=== PATIENT | female | born 1975 | race Caucasian/White ===

== ENCOUNTER 2016-05-06 15:03 | Emergency (ER) | payer SELFPAY ==
[~2016-05-06 15:03] MED LIST: Iopamidol 370 76% 100 ML VIAL ONE; Sodium Chloride 0.9% 1,000 ML BAG ONE
[2016-05-06] MEDS ORDERED: Ondansetron HCl/PF 4 MG/2 ML Vial ONE (15:30)
[2016-05-06 15:46] LABS: Bilirubin Negative (Negative); Blood, Urine Trace (Negative); Clarity Clear (Clear); Glucose, Urine (Dipstick) Negative (Negative); Leukocyte Negative (Negative); Nitrite Negative (Negative); Protein, Urine (Dipstick) Negative (Neg-Trace); RBC/HPF 0-3 HPF (0-3); Specific Gravity, Urine 1.015 (1.005-1.030); Urobilinogen 0.2 mg/dL (0.2-1.0)
[2016-05-06 15:47] LABS: WBC/HPF 0-3 HPF (0-3)
[2016-05-06 16:04] LABS: #Basophils 0.2 thou/uL (0.0-0.2); #Eosinphils 0.2 thou/uL (0.0-0.7); #Lymphocytes 3.4 thou/uL (1.20-3.40); #Monocytes 0.5 thou/uL (0.11-0.59); #Neutrophils 7.2 thou/uL (1.40-6.50); %Basophils 1.4 % (0.0-1.0); %Eosinophils 1.8 % (0.0-10.0); %Lymphocytes 29.7 % (21.0-51.0); %Monocytes 4.5 % (0.0-10.0); %Neutrophils 62.7 % (42.0-75.0); Hemoglobin 15.3 g/dL (12.0-16.0); Mean Corpuscular HGB CONC 34.3 g/dL (32.0-36.0); Mean Corpuscular Hemoglobin 31.9 pg (27.0-31.0); Mean Platelet Volume 6.8 fL (7.4-10.4); Platelet Count 433 thou/uL (130-400); RBC Distribution Width 12.3 % (11.5-14.5); White Blood Cell (WBC) Count 11.4 thou/uL (4.8-10.8)
[2016-05-06] MEDS ORDERED: Ketorolac Tromethamine 30 MG/ML VIAL ONE (16:05)
[2016-05-06 16:18] LABS: Amphetamine Not Detected (NotDetected); Benzodiazepine Screen Detected (NotDetected); Cocaine Metabolite Screen Not Detected (NotDetected); Methamphetamine Not Detected (NotDetected); Opiate Screen Detected (NotDetected); Phencyclidine (PCP) Not Detected (NotDetected); THC/Cannabinoid Screen Not Detected (NotDetected); Tricyclic Screen Not Detected (NotDetected)
[2016-05-06 16:19] LABS: Barbiturates Screen Not Detected (NotDetected); Medtox Control Line Valid? VALID (VALID); Methadone Not Detected (NotDetected); Oxycodone Screen Not Detected (NotDetected)
[2016-05-06 16:22] LABS: ALT (SGPT) 14 U/L (0-55); AST (SGOT) 14 U/L (5-34); Albumin 4.5 g/dL (3.5-5.0); Alkaline Phosphatase 104 U/L (40-150); Anion Gap 16 mmol/L (10-20); BUN (Urea Nitrogen) 4 mg/dL (7.0-18.7); Bilirubin, Total 0.3 mg/dL (0.2-1.2); Calc. Creatinine Clearance 0 mL/min (70-130); Calcium 9.6 mg/dL (7.8-10.44); Carbon Dioxide 24 mmol/L (22-29); Chloride 104 mmol/L (98-107); Estimated GFR-MDRD 86; Globulin 2.5 g/dL (2.4-3.5); Glucose 86 mg/dL (70-105); Potassium 3.6 mmol/L (3.5-5.1); Sodium 140 mmol/L (136-145)
[2016-05-06] MEDS ORDERED: methylPREDNISolone Sod Succ/PF 125 MG/2 ML VIAL ONE (16:24)
[2016-05-06] MEDS ORDERED: diphenhydrAMINE HCl 50 MG/ML 1 ML VIAL ONE (16:24)
--- NOTE | 2016-05-06 19:16 | ERRECORD ---
[facility] EMERGENCY RECORD HPI NAUSEA/VOMITING/DIARRHEA (15:55 LHOD) CHIEF COMPLAINT: Patient presents for evaluation of nausea, Patient presents for evaluation of vomiting, Patient presents for evaluation of diarrhea. HISTORIAN: History provided by patient. TIME COURSE: PT REPORTS FOR PAST MONTH SHE HAS HAD VOMITING AND DIARRHEA. LAST PM ONSET OF LOWER ABDOMINAL CRAMPING. REPORTS SHE HAS HAD BLOOD IN HER STOOL. DENIES FOREIGN TRAVEL. ROS (16:01 LHOD) CONSTITUTIONAL: Historian denies fever. CARDIOVASCULAR: Historian denies chest pain. RESPIRATORY: Historian denies shortness of breath. GI: Historian reports abdominal pain, reports diarrhea, reports nausea, reports vomiting. LOWER ABDOMEN, SUPRAPUBIC. GENITOURINARY FEMALE: Historian denies dysuria, denies . MUSCULOSKELETAL: Negative musculoskeletal review of systems. SKIN: Historian denies rash. HEMO/LYMPHATIC: Historian denies easy bruising. NOTES: All systems reviewed, negative except as described above. PAST MEDICAL HISTORY MEDICAL HISTORY: Notes: BREAST CA-2013, Flu vaccine not up to date. (15:14 SFRE) FEMALE SURGICAL HISTORY: ANDNOIDS, Surgical history of amputation to, Surgical history of cholecystectomy, Surgical history of hysterectomy, Surgical history of tonsillectomy. (15:14 SFRE) PSYCHIATRIC HISTORY: No previous psychiatric history. (15:14 SFRE) SOCIAL HISTORY: Patient drinks socially, rarely, Patient denies drug use, Patient currently uses tobacco, smokes cigarettes, daily. (15:14 SFRE) NOTES: Nursing records reviewed, REPORTS SHE HAS HAD HYSTERECTOMY AND BILATERAL OOPHORECTOMY FOR ENDOMETRIOSIS. (15:14 LHOD) KNOWN ALLERGIES amoxicillin (bulk) Cipro tablet erythromycin Penicillins Sulfa (Sulfonamide Antibiotics) CURRENT MEDICATIONS No recorded medications VITAL SIGNS VITAL SIGNS: BP: 122/68, Pulse: 74, Resp: 18, Temp: 97.2 (Tympanic), Pain: 8, O2 sat: 98 on Room Air, Time: 05/06/2016 15:08. &a-1R&a+25V*p+0X*[id number]*c202B*c15G*c2P*p-0X&a-25V&a+1R Name: Janet Cox Mejia : 1975 F41 MedRec: [id number] AcctNum: [id number] Prepared: MonMay 06, 2016 19:26 by Interface Page 1 of 3 pMD [facility] EMERGENCY RECORD (15:08 SFRE) BP: 118/67, Pulse: 71, Resp: 18, Temp: 97.4, Pain: 4, O2 sat: 98 on RA, Time: 05/06/2016 19:04. (19:04 SFRE) PHYSICAL EXAM (16:07 LHOD) CONSTITUTIONAL: Vital signs reviewed, Patient afebrile, Pulse normal, Blood pressure normal, Respiratory rate normal, Patient appears in pain, in moderate pain distress, Patient alert and oriented to person, place and time. EYES: Sclera normal. NECK: Neck exam included findings of normal range of motion, Trachea midline. RESPIRATORY CHEST: Respiratory exam included findings of no respiratory distress, Breath sounds clear. CARDIOVASCULAR: Cardiovascular exam included findings of heart rate regular rate and rhythm, Heart sounds normal. ABDOMEN FEMALE: Abdominal exam included findings of abdomen tender, to the suprapubic region, moderate intensity, Normal rectal exam, NO STOOL IN RECTAL VAULT. BACK: Back exam normal. UPPER EXTREMITY: Upper extremity exam normal. LOWER EXTREMITY: LEFT LITTLE TOE WITH BRUISING OF PROXIMAL PHALANX. NEURO: Neuro exam findings include patient oriented to person, place and time, Speech normal. SKIN: no rash. RADIOLOGYINTERPRETATION (19:23 LHOD) ABDOMEN: Abdomen/pelvis CT scan, with contrast negative. MEDICATION ADMINISTRATION SUMMARY Drug Name: methylPREDNISolone sodium succ intraveno, Dose Ordered: 125 mg, Route: IV Push, Status: Given, Time: 16:29 05/06/2016, Drug Name: Benadryl injection, Dose Ordered: 12.5 mg, Route: IV Push, Status: Given, Time: 16:28 05/06/2016, Drug Name: Toradol injection, Dose Ordered: 30 mg, Route: IV Push, Status: Given, Time: 16:13 05/06/2016, Drug Name: Zofran intravenous, Dose Ordered: 8 mg, Route: IV Push, Status: Given, Time: 15:50 05/06/2016, Drug Name: Normal Saline, Dose Ordered: 250 mL/hr, Route: IV Fluid Infusion, Status: Given, Time: 15:49 05/06/2016, Detailed record available in Medication Service section. DOCTOR NOTES (17:09 LHOD) TEXT: ON FURTHER QUESTIONING, PT REPORTS SHE TOOK A VICODIN LAST PM AFTER STUBBING HER TOE. DOES NOT KNOW WHY SHE WOULD HAVE ANY BENZOS IN HER SYSTEM. DENIES VALIUM, XANAX, ATIVAN, ETC.. PT CAME BACK AND TOLD RN SHE TOOK KLONOPIN. &a-1R&a+25V*p+0X*[id number]*c202B*c15G*c2P*p-0X&a-25V&a+1R Name: Janet Cox : 1975 F41 MedRec: [id number] AcctNum: [id number] Prepared: MonMay 06, 2016 19:26 by Interface Page 2 of 3 pMD [facility] EMERGENCY RECORD 174---WAITING FOR CT. 1819--WAITING FOR CT. 1823--CT DONE, AWAITING REPORT. PT REPORTS SHE CAN TOLERATE CIPRO---NOT AN ALLERGY. SHE WAS EAGER TO LEAVE AND SMOKE. REPORTS SHE HAS HER OWN BUSINESS SO DOESN'T NEED WORK NOTE. 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 PROBLEM LIST No recorded problems DIAGNOSIS (18:49 LHOD) FINAL: PRIMARY: GASTROENTERITIS---UNCERTAIN ETIOLGOY. PRESCRIPTION Cipro tablet: TABLET : 500 mg : ORAL : Quantity: 1 Unit: tab(s) Route: ORAL Schedule: 2 times a day Dispense: 20 May substitute. Refills: No Refills POTENTIAL ALLERGY REACTION: 'Cipro tablet [ciprofloxacin/ciprofloxacin HCl]' Override Rationale: Not a true drug allergy. (18:49 LHOD) NOTES: No Refills. (18:49 LHOD) Flagyl: TABLET : 500 mg : ORAL : Quantity: 1 Unit: tab(s) Route: ORAL Schedule: 3 times a day (after meals) Dispense: 30 May substitute. Refills: No Refills . (18:49 LHOD) NOTES: ^s=No Refills No Refills. (18:49 LHOD) Zofran ODT: TABLET, RAPID DISSOLVE : 8 mg : ORAL : Quantity: 1 Unit: tab(s) Route: ORAL Schedule: every 6 hours PRN Dispense: 4 May substitute. Refills: 1 . (18:49 OD) NOTES: ^s=^s=No Refills No Refills No Refills. (18:49 LHOD) : CAPSULE : 16.2 mg-0.1037 mg-0.0194 mg-0.0065 mg : ORAL : Quantity: 1 Unit: tab(s) Route: ORAL Schedule: every 8 hours PRN Dispense: 12 May substitute. Refills: No Refills . (18:50 LHOD) NOTES: No Refills. (18:50 LHOD) DISPOSITION PATIENT: Disposition Type: Discharge, Disposition: *Discharge Home, Condition: Good. (18:49 LHOD) [facility] the [facility]. [facility] Frost: LHOD=MD Paty, Kathleen SFRE=ALEJANDRA Horton, Martha &a-1R&a+25V*p+0X*[id number]*c202B*c15G*c2P*p-0X&a-25V&a+1R Name: Janet Cox Mejia : 1975 F41 MedRec: [id number] AcctNum: [id number] Prepared: MonMay 06, 2016 19:26 by Interface Page 3 of 3 pMD MTDD
--- NOTE | 2016-05-06 19:22 | PICIS ---
[facility] EMERGENCY RECORD TRIAGE (MonMay 06, 2016 15:10 SFRE) TRIAGE NOTES: ABD CRAMPING STARTED LAST NIGHT AND DIARRHEA FOR A MONTH, N/V ALSO A MONTH AGO. (MonMay 06, 2016 15:10 SFRE) PATIENT: NAME: Janet Cox, AGE: 41, GENDER: female, : Mon1975, TIME OF GREET: MonMay 06, 2016 15:03, PREFERRED LANGUAGE: [place]ian, ETHNICITY: Not or , ECODE BILLING MAP: [facility], SSN: [id number], Zip Code: [address], KG WEIGHT: 59.87, PHONE: , , , PERSON ID: [id number], PCP: NO PCP. (MonMay 06, 2016 15:10 SFRE) COMPLAINT: CRAMPS. (MonMay 06, 2016 15:10 SFRE) ADMISSION: URGENCY: 3 Urgent, ADMISSION SOURCE: Home, TRANSPORT: Walk-in, BED: ED -01. (MonMay 06, 2016 15:10 SFRE) PAIN: Patient complains of pain described as, Location LOWER ABD, Pain is constant, No aggravating factors, No relieving factors. (15:14 SFRE) IMMUNIZATIONS: Flu vaccine not up to date. (15:14 SFRE) SIRS SCORING: Heart Rate 55-109 (0), Temp range 96.8-101.1 (0), respiratory rate 12-24 (0), Mental Status altered: no (0). (15:14 SFRE) TRIAGE SCREENING: Patient denies suicidal ideation, Patient denies presence of domestic violence. (15:14 SFRE) PROVIDERS: TRIAGE NURSE: Martha Horton RN. (MonMay 06, 2016 15:10 SFRE) VITAL SIGNS: BP 122/68, Pulse 74, Resp 18, Temp 97.2, (Tympanic), Pain 8, O2 Sat 98, on Room Air, Time 05/06/2016 15:08. (15:08 SFRE) KNOWN ALLERGIES amoxicillin (bulk) Cipro tablet erythromycin Penicillins Sulfa (Sulfonamide Antibiotics) CURRENT MEDICATIONS No recorded medications VITAL SIGNS VITAL SIGNS: BP: 122/68, Pulse: 74, Resp: 18, Temp: 97.2 (Tympanic), Pain: 8, O2 sat: 98 on Room Air, Time: 05/06/2016 15:08. (15:08 SFRE) BP: 118/67, Pulse: 71, Resp: 18, Temp: 97.4, Pain: 4, O2 sat: 98 on RA, Time: 05/06/2016 19:04. (19:04 SFRE) NURSING ASSESSMENT: ABDOMEN (15:58 SFRE) CONSTITUTIONAL: Patient arrives ambulatory, Gait steady, History obtained from patient, Patient appears, generally ill, Patient cooperative, Patient alert, Oriented to person, place and time, Skin warm, Skin dry, Skin normal in color, Mucous membranes pink, Mucous membranes moist, Patient is well-groomed, Patient &a-1R&a+25V*p+0X*b2327B*c202B*c15G*c2P*p-0X&a-25V&a+1R Name: Janet Cox : 1975 F41 MedRec: [id number] AcctNum: [id number] Prepared: MonMay 06, 2016 19:32 by Interface Page 1 of 11 pMD [facility] EMERGENCY RECORD complains of ABD CRAMPING. PAIN: cramping pain, to the suprapubic region, Onset of pain TODAY, constant, on a scale 0-10 patient rates pain as 8, Pain exacerbated by nothing, Nothing has been tried to alleviate the pain. ABDOMEN: Abdomen assessment findings include abdomen symmetrical, Abdomen soft, tender, Bowel sound normal, Associated with nausea, Associated with vomiting, history of vomiting, Number of times: 1, Associated with diarrhea, Number of episodes: FOR A MONTH, no associated constipation, Notes: ALSO STATES SHE HAS HAD NAUSEA FOR A MONTH. GENITOURINARY FEMALE: no associated urinary complaints. SAFETY: Side rails up, Cart/Stretcher in lowest position, Family at bedside, Call light within reach, Hospital ID band on. NURSING PROCEDURE: DISCHARGE NOTE (19:04 SFRE) DISCHARGE: Patient discharged to home, ambulating without assistance, family driving, accompanied by //partner, Summary of Care printed/ provided, Patient requested and was provided an electronic copy of Discharge Instructions, Discharge instructions given to patient, Simple or moderate discharge teaching performed, by ALEJANDRA FOWLER, F/U WITH PCP. RX DIRECTED. RETURN TO ED NEEDED FOR NEW/CONCERNING OR WORSENING SYMPTOMS., Prescriptions given and instructions on side effects given, Name of prescription(s) given: DONNATOL, FLAGYL, ZOFRAN, CIPRO, Above person(s) verbalized understanding of discharge instructions and follow-up care. VITAL SIGNS: BP: 118, / 67, Pulse: 71, Resp: 18, Temp: 97.4, Pain: 4, O2 sat: 98, on: RA. NURSING PROCEDURE: IV IV SITE 1: IV therapy indicated for hydration, IV therapy indicated for medication administration, IV established, to the left antecubital, using a 20 gauge catheter, in one attempt, Saline lock established, Flushed with normal saline (mls): 5CC, Labs drawn at time of placement, labeled in the presence of the patient and sent to lab. (15:48 SFRE) FOLLOW-UP SITE 1: After procedure, no drainage at IV site, After procedure, no swelling at IV site, After procedure, no redness at IV site. (17:43 SFRE) NURSING PROCEDURE: NURSE NOTES NURSES NOTES: Patient assisted to bathroom with steady gait, Notes: TO PROVIDE UA SPECIMEN. (15:29 SFRE) Notes: wants to go smoke. instructed that she couldn't do that. (17:14 SFRE) Notes: PATIENT SITTING UP IN BED. NAD NOTED. ZERO NEEDS AT THIS TIME. (17:27 SFRE) Notes: IVF INFUSING WITHOUT DIFFICULTY. ZERO NEEDS AT THIS TIME. (17:43 SFRE) &a-1R&a+25V*p+0X*d7587C*c202B*c15G*c2P*p-0X&a-25V&a+1R Name: Janet Cox : 1975 F41 MedRec: [id number] AcctNum: [id number] Prepared: MonMay 06, 2016 19:32 by Interface Page 2 of 11 pMD [facility] EMERGENCY RECORD Notes: PATIENT RESTING QUIETY WITH NAD. ASKS IF AFTER CT IF SHE CAN HAVE IV REMOVED SO SHE CAN GO SMOKE. INFORMED PATIENT IT DEPENDS ON WHAT CT SAYS. (17:52 SFRE) NURSING PROCEDURE: TRANSPORT TO TESTS (18:07 SFRE) TRANSPORT TO TESTS: Transport indicated to facilitate diagnosis, Patient transported to CT scan, via wheelchair, Accompanied by x-ray exhibit technician. ORDER DETAILS Order Name: CBC with Differential, Status: Active, Time: 15:25 05/06/2016, User: ALMA, - Ordered for: MD Newman Lefayne, - Entered by: MD Newman Lefayne - MonMay 06, 2016 15:25, - Quantity: 1, Order Name: Clostridium difficile Screen, Status: Active, Time: 15:26 05/06/2016, User: ALMA, - Ordered for: MD Newman Lefayne, - Entered by: MD Newman Lefayne - MonMay 06, 2016 15:26, - Quantity: 1, Order Name: Comprehensive Metabolic Panel, Status: Active, Time: 15:25 05/06/2016, User: ALMA, - Ordered for: MD Newman Lefayne, - Entered by: MD Newman Lefayne - MonMay 06, 2016 15:25, - Quantity: 1, Order Name: CT Abdomen Pelvis WO Con, Status: Canceled, Time: 16:41 05/06/2016, User: System, - Ordered for: MD Newman Lefayne, - Entered by: MD Newman Lefayne - MonMay 06, 2016 16:17, - Quantity: 1, Order Name: Drug Screen, Urine, Status: Active, Time: 15:26 05/06/2016, User: ALMA, - Ordered for: MD Newman Lefayne, - Entered by: MD Newman Lefayne - MonMay 06, 2016 15:26, - Quantity: 1, Order Name: SALINE LOCK, Status: Done, Time: 15:26 05/06/2016, User: MARCIE, - Ordered for: MD Newman Lefayne, - Entered by: MD Newman Lefayne - MonMay 06, 2016 15:25, - Quantity: 1, Order Name: Urinalysis with Microscopic, Status: Active, Time: 15:26 05/06/2016, User: ALMA, - Ordered for: MD Newman Lefayne, - Entered by: MD Newman Lefayne - MonMay 06, 2016 15:26, - Quantity: 1. MEDICATION ADMINISTRATION SUMMARY Drug Name: methylPREDNISolone sodium succ intraveno, Dose Ordered: &a-1R&a+25V*p+0X*g3912D*c202B*c15G*c2P*p-0X&a-25V&a+1R Name: Janet Cox : 1975 F41 MedRec: [id number] AcctNum: [id number] Prepared: MonMay 06, 2016 19:32 by Interface Page 3 of 11 pMD [facility] EMERGENCY RECORD 125 mg, Route: IV Push, Status: Given, Time: 16:29 05/06/2016, Drug Name: Benadryl injection, Dose Ordered: 12.5 mg, Route: IV Push, Status: Given, Time: 16:28 05/06/2016, Drug Name: Toradol injection, Dose Ordered: 30 mg, Route: IV Push, Status: Given, Time: 16:13 05/06/2016, Drug Name: Zofran intravenous, Dose Ordered: 8 mg, Route: IV Push, Status: Given, Time: 15:50 05/06/2016, Drug Name: Normal Saline, Dose Ordered: 250 mL/hr, Route: IV Fluid Infusion, Status: Given, Time: 15:49 05/06/2016, Detailed record available in Medication Service section. MEDICATION SERVICE Benadryl injection: Order: Benadryl injection (diphenhydramine HCl) - Dose: 12.5 mg : IV Push Ordered by: Kathleen Newman MD Entered by: Kathleen Newman MD MonMay 06, 2016 16:21 , Acknowledged by: Martha Horton RN MonMay 06, 2016 16:22 Documented as given by: Martha Horton RN MonMay 06, 2016 16:28 Patient, Medication, Dose, Route and Time verified prior to administration. Amount given: 12.5mg, IV SITE #1 IVP, subsequent different medication, Slowly, Awake and alert- acceptable, Catheter placement confirmed via flush prior to administration, IV site without signs or symptoms of infiltration during medication administration, No swelling during administration, No drainage during administration, IV flushed after administration, Correct patient, time, route, dose and medication confirmed prior to administration, Patient advised of actions and side-effects prior to administration, Allergies confirmed and medications reviewed prior to administration, Patient in position of comfort, Side rails up, Cart in lowest position, Family at bedside. methylPREDNISolone sodium succ intravenous: Order: methylPREDNISolone sodium succ intravenous (methylprednisolone sod succ) - Dose: 125 mg : IV Push Ordered by: Kathleen Newman MD Entered by: Kathleen Newman MD MonMay 06, 2016 16:21 , Acknowledged by: Martha Horton RN MonMay 06, 2016 16:22 Documented as given by: Martha Horton RN MonMay 06, 2016 16:29 Patient, Medication, Dose, Route and Time verified prior to administration. Amount given: 125mg, IV SITE #1 IVP, subsequent different medication, Slowly, Awake and alert- acceptable, Catheter placement confirmed via flush prior to administration, IV site without signs or symptoms of infiltration during medication administration, No swelling during administration, No drainage during administration, IV flushed after administration, Correct patient, time, route, dose and medication confirmed prior to administration, Patient advised of actions and side-effects prior to administration, Allergies confirmed and medications reviewed prior to administration, Patient in position of comfort, Side rails up, Cart in lowest position, Family at &a-1R&a+25V*p+0X*u9851X*c202B*c15G*c2P*p-0X&a-25V&a+1R Name: Janet Cox : 1975 F41 MedRec: [id number] AcctNum: [id number] Prepared: MonMay 06, 2016 19:32 by Interface Page [address] [facility] EMERGENCY RECORD bedside. Normal Saline: Order: Normal Saline (0.9 % sodium chloride) - Dose: 250 mL/hr : IV Fluid Infusion Ordered by: Kathleen Newman MD Entered by: Kathleen Newman MD MonMay 06, 2016 15:25 , Acknowledged by: Martha Horton RN MonMay 06, 2016 15:28. : Follow Up : Response assessment performed, No signs or symptoms of allergic reaction noted, Site inspection shows, No swelling at administration site, No drainage at administration site, No bleeding at site, No bruising noted at site, _IV SITE #1:_, IV fluid infusion discontinued, on MonMay 06, 2016 19:04, Total fluid hydration time IV site 1 3 hours, 15 minutes, ., Total amount infused: 700ML, IV Discontinued with catheter intact. (19:04 SFRE) Toradol injection: Order: Toradol injection (ketorolac tromethamine) - Dose: 30 mg : IV Push Ordered by: Kathleen Newman MD Entered by: Kathleen Newman MD MonMay 06, 2016 16:04 Documented as given by: Martha Horton RN MonMay 06, 2016 16:13 Patient, Medication, Dose, Route and Time verified prior to administration. Amount given: 30MG, IV SITE #1 IVP, subsequent different medication, Slowly, IV SITE #1 added to existing IV Fluid, Type: NS, Amount of fluid remainin, Awake and alert- acceptable, Catheter placement confirmed via flush prior to administration, IV site without signs or symptoms of infiltration during medication administration, No swelling during administration, No drainage during administration, IV flushed after administration, Correct patient, time, route, dose and medication confirmed prior to administration, Patient advised of actions and side-effects prior to administration, Allergies confirmed and medications reviewed prior to administration, Patient in position of comfort, Side rails up, Cart in lowest position, Family at bedside. : Follow Up : Response assessment performed, No signs or symptoms of allergic reaction noted, No change in pain, _IV SITE #1:_. (16:31 SFRE) Zofran intravenous: Order: Zofran intravenous (ondansetron HCl) - Dose: 8 mg : IV Push Ordered by: Kathleen Newman MD Entered by: Kathleen Newman MD MonMay 06, 2016 15:25 , Acknowledged by: Martha Horton RN MonMay 06, 2016 15:28 Documented as given by: Martha Horton RN MonMay 06, 2016 15:50 Patient, Medication, Dose, Route and Time verified prior to administration. Amount given: 8MG, IV SITE #1 IVP, initial medication, Slowly, IV SITE #1 added to existing IV Fluid, Type: NS, Amount of fluid remainin. : Follow Up : Response assessment performed, No signs or symptoms of allergic reaction noted, No change in nausea, Site inspection shows, No swelling at administration site, No drainage at &a-1R&a+25V*p+0X*z4853W*c202B*c15G*c2P*p-0X&a-25V&a+1R Name: Janet Cox : 1975 F41 MedRec: [id number] AcctNum: [id number] Prepared: MonMay 06, 2016 19:32 by Interface Page 5 of 11 pMD [facility] EMERGENCY RECORD administration site, No bleeding at site, No bruising noted at site, _IV SITE #1:_. (16:31 SFRE) HPI NAUSEA/VOMITING/DIARRHEA (15:55 LHOD) CHIEF COMPLAINT: Patient presents for evaluation of nausea, Patient presents for evaluation of vomiting, Patient presents for evaluation of diarrhea. HISTORIAN: History provided by patient. TIME COURSE: PT REPORTS FOR PAST MONTH SHE HAS HAD VOMITING AND DIARRHEA. LAST PM ONSET OF LOWER ABDOMINAL CRAMPING. REPORTS SHE HAS HAD BLOOD IN HER STOOL. DENIES FOREIGN TRAVEL. ROS (16:01 LHOD) CONSTITUTIONAL: Historian denies fever. CARDIOVASCULAR: Historian denies chest pain. RESPIRATORY: Historian denies shortness of breath. GI: Historian reports abdominal pain, reports diarrhea, reports nausea, reports vomiting. LOWER ABDOMEN, SUPRAPUBIC. GENITOURINARY FEMALE: Historian denies dysuria, denies . MUSCULOSKELETAL: Negative musculoskeletal review of systems. SKIN: Historian denies rash. HEMO/LYMPHATIC: Historian denies easy bruising. NOTES: All systems reviewed, negative except as described above. PAST MEDICAL HISTORY MEDICAL HISTORY: Notes: BREAST CA-2013, Flu vaccine not up to date. (15:14 SFRE) FEMALE SURGICAL HISTORY: ANDNOIDS, Surgical history of amputation to, Surgical history of cholecystectomy, Surgical history of hysterectomy, Surgical history of tonsillectomy. (15:14 SFRE) PSYCHIATRIC HISTORY: No previous psychiatric history. (15:14 SFRE) SOCIAL HISTORY: Patient drinks socially, rarely, Patient denies drug use, Patient currently uses tobacco, smokes cigarettes, daily. (15:14 SFRE) NOTES: Nursing records reviewed, REPORTS SHE HAS HAD HYSTERECTOMY AND BILATERAL OOPHORECTOMY FOR ENDOMETRIOSIS. (15:14 LHOD) PHYSICAL EXAM (16:07 LHOD) CONSTITUTIONAL: Vital signs reviewed, Patient afebrile, Pulse normal, Blood pressure normal, Respiratory rate normal, Patient appears in pain, in moderate pain distress, Patient alert and oriented to person, place and time. EYES: Sclera normal. NECK: Neck exam included findings of normal range of motion, Trachea midline. RESPIRATORY CHEST: Respiratory exam included findings of no respiratory distress, Breath sounds clear. &a-1R&a+25V*p+0X*q9514G*c202B*c15G*c2P*p-0X&a-25V&a+1R Name: Janet Cox : 1975 F41 MedRec: [id number] AcctNum: [id number] Prepared: MonMay 06, 2016 19:32 by Interface Page 6 of 11 pMD [facility] EMERGENCY RECORD CARDIOVASCULAR: Cardiovascular exam included findings of heart rate regular rate and rhythm, Heart sounds normal. ABDOMEN FEMALE: Abdominal exam included findings of abdomen tender, to the suprapubic region, moderate intensity, Normal rectal exam, NO STOOL IN RECTAL VAULT. BACK: Back exam normal. UPPER EXTREMITY: Upper extremity exam normal. LOWER EXTREMITY: LEFT LITTLE TOE WITH BRUISING OF PROXIMAL PHALANX. NEURO: Neuro exam findings include patient oriented to person, place and time, Speech normal. SKIN: no rash. LAB INTERPRETATION (15:57 LHOD) INTERPRETATION: I reviewed the lab results, CBC abnormal, White blood cell count elevated, Chemistry normal, Urinalysis normal, Urine toxicology, positive for opiates, positive for benzodiazepines. EVENTS TRANSFER: Triage to Emergency Main ED -01. (15:10 SFRE) Emergency Main ED -01 to -05. (15:23 SFRE) Removed from Emergency Main ED -05. (19:08 SFRE) RADIOLOGYINTERPRETATION (19:23 LHOD) ABDOMEN: Abdomen/pelvis CT scan, with contrast negative. DOCTOR NOTES (17:09 LHOD) TEXT: ON FURTHER QUESTIONING, PT REPORTS SHE TOOK A VICODIN LAST PM AFTER STUBBING HER TOE. DOES NOT KNOW WHY SHE WOULD HAVE ANY BENZOS IN HER SYSTEM. DENIES VALIUM, XANAX, ATIVAN, ETC.. PT CAME BACK AND TOLD RN SHE TOOK KLONOPIN. 1739---WAITING FOR CT. 1819--WAITING FOR CT. 1823--CT DONE, AWAITING REPORT. PT REPORTS SHE CAN TOLERATE CIPRO---NOT AN ALLERGY. SHE WAS EAGER TO LEAVE AND SMOKE. REPORTS SHE HAS HER OWN BUSINESS SO DOESN'T NEED WORK NOTE. 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 PROBLEM LIST No recorded problems DIAGNOSIS (18:49 LHOD) FINAL: PRIMARY: GASTROENTERITIS---UNCERTAIN ETIOLGOY. DISPOSITION PATIENT: Disposition Type: Discharge, Disposition: *Discharge Home, Condition: Good. (18:49 LHOD) &a-1R&a+25V*p+0X*n6314E*c202B*c15G*c2P*p-0X&a-25V&a+1R Name: Janet Cox : 1975 F41 MedRec: [id number] AcctNum: [id number] Prepared: MonMay 06, 2016 19:32 by Interface Page 7 of 11 pMD [facility] EMERGENCY RECORD Patient left the department. (19:08 [facility]) INSTRUCTION (18:51 LHOD) DISCHARGE: GASTROENTERITIS, BACTERIAL [5Y-ADULT]. FOLLOWUP: Follow up with Primary Care Physician in 5 days, Follow up with Specialist in 7 days. SPECIAL: FOLLOW UP WITH A PHOTOVOLTAIC SUBCONTRACTOR. SOUPS / GATORADE AVOID DAIRY PRODUCTS FOR NEXT 5 DAYS. *RETURN IF WORSE Follow-up with your PCP. PRESCRIPTION Cipro tablet: TABLET : 500 mg : ORAL : Quantity: 1 Unit: tab(s) Route: ORAL Schedule: 2 times a day Dispense: 20 May substitute. Refills: No Refills POTENTIAL ALLERGY REACTION: 'Cipro tablet [ciprofloxacin/ciprofloxacin HCl]' Override Rationale: Not a true drug allergy. (18:49 LHOD) NOTES: No Refills. (18:49 LHOD) Flagyl: TABLET : 500 mg : ORAL : Quantity: 1 Unit: tab(s) Route: ORAL Schedule: 3 times a day (after meals) Dispense: 30 May substitute. Refills: No Refills . (18:49 LHOD) NOTES: ^s=No Refills No Refills. (18:49 LHOD) Zofran ODT: TABLET, RAPID DISSOLVE : 8 mg : ORAL : Quantity: 1 Unit: tab(s) Route: ORAL Schedule: every 6 hours PRN Dispense: 4 May substitute. Refills: 1 . (18:49 LHOD) NOTES: ^s=^s=No Refills No Refills No Refills. (18:49 LHOD) : CAPSULE : 16.2 mg-0.1037 mg-0.0194 mg-0.0065 mg : ORAL : Quantity: 1 Unit: tab(s) Route: ORAL Schedule: every 8 hours PRN Dispense: 12 May substitute. Refills: No Refills . (18:50 LHOD) NOTES: No Refills. (18:50 LHOD) IMAGING (19:07 SFRE) *DISCHARGE INSTRUCTIONS RECEIPT: Image captured from scanner. *SUPPLY CHARGE SHEET: Image captured from scanner. ADMIN DIGITAL SIGNATURE: ALEJANDRA Horton, Martha. (19:08 SFRE) MD Newman Lefayne. (19:24 LHOD) RESULTS LABORATORY: Urinalysis with Microscopic Collection DT: MonMay 06, 2016 15:40, &a-1R&a+25V*p+0X*o7019J*c202B*c15G*c2P*p-0X&a-25V&a+1R Name: Janet Cox : 1975 F41 MedRec: [id number] AcctNum: [id number] Prepared: MonMay 06, 2016 19:32 by Interface Page 8 of 11 pMD [facility] EMERGENCY RECORD Color Yellow , Range (Yellow), Clarity Clear , Range (Clear), Specific [place], Urine 1.015 , Range (1.005-1.030), pH, Urine 7.0 , Range (5.0-9.0), Leukocyte Negative , Range (Negative), Nitrite Negative , Range (Negative), Protein, Urine (Dipstick) Negative mg/dL, Range (Neg-Trace), Glucose, Urine (Dipstick) Negative mg/dL, Range (Negative), Ketone, Urine Negative mg/dL, Range (Negative), Urobilinogen 0.2 mg/dL, Range (0.2-1.0), Bilirubin Negative , Range (Negative), *Blood, Urine Trace - H , Range (Negative), RBC/HPF 0-3 HPF, Range (0-3). (15:50 LHOD) Urinalysis with Microscopic Collection DT: MonMay 06, 2016 15:40, Color Yellow , Range (Yellow), Clarity Clear , Range (Clear), Specific [place], Urine 1.015 , Range (1.005-1.030), pH, Urine 7.0 , Range (5.0-9.0), Leukocyte Negative , Range (Negative), Nitrite Negative , Range (Negative), Protein, Urine (Dipstick) Negative mg/dL, Range (Neg-Trace), Glucose, Urine (Dipstick) Negative mg/dL, Range (Negative), Ketone, Urine Negative mg/dL, Range (Negative), Urobilinogen 0.2 mg/dL, Range (0.2-1.0), Bilirubin Negative , Range (Negative), *Blood, Urine Trace - H , Range (Negative), RBC/HPF 0-3 HPF, Range (0-3), WBC/HPF 0-3 HPF, Range (0-3). (15:54 LHOD) CBC with Differential Collection DT: MonMay 06, 2016 15:52, *White Blood Cell (WBC) Count 11.4 - H thou/uL, Range (4.8-10.8), Red Blood Cell (RBC) Count 4.80 mill/uL, Range (4.20-5.40), Hemoglobin 15.3 g/dL, Range (12.0-16.0), Hematocrit 44.6 %, Range (36.0-47.0), Mean Corpuscular Volume 93.0 fl, Range (81.0-99.0), *Mean Corpuscular Hemoglobin 31.9 - H pg, Range (27.0-31.0), Mean Corpuscular HGB CONC 34.3 g/dL, Range (32.0-36.0), RBC Distribution Width 12.3 %, Range (11.5-14.5), *Platelet Count 433 - H thou/uL, Range (130-400), *Mean Platelet Volume 6.8 - L fL, Range (7.4-10.4), %Neutrophils 62.7 %, Range (42.0-75.0), %Lymphocytes 29.7 %, Range (21.0-51.0), %Monocytes 4.5 %, Range (0.0-10.0), %Eosinophils 1.8 %, Range (0.0-10.0), *%Basophils 1.4 - H %, Range (0.0-1.0), *#Neutrophils 7.2 - H thou/uL, Range (1.40-6.50), #Lymphocytes 3.4 thou/uL, Range (1.20-3.40), #Monocytes 0.5 thou/uL, Range (0.11-0.59), #Eosinphils 0.2 thou/uL, Range (0.0-0.7), #Basophils 0.2 thou/uL, Range (0.0-0.2). (16:14 LHOD) &a-1R&a+25V*p+0X*p3753Y*c202B*c15G*c2P*p-0X&a-25V&a+1R Name: Janet Cox Mejia : 1975 F41 MedRec: [id number] AcctNum: [id number] Prepared: MonMay 06, 2016 19:32 by Interface Page 9 of 11 pMD [facility] EMERGENCY RECORD Drug Screen, Urine Collection DT: MonMay 06, 2016 15:52, THC/Cannabinoid Screen Not Detected , Range (NotDetected), Phencyclidine (PCP) Not Detected , Range (NotDetected), Cocaine Metabolite Screen Not Detected , Range (NotDetected), Methamphetamine Not Detected , Range (NotDetected), *Opiate Screen Detected - H , Range (NotDetected), Amphetamine Not Detected , Range (NotDetected), *Benzodiazepine Screen Detected - H , Range (NotDetected), Tricyclic Screen Not Detected , Range (NotDetected), Methadone Not Detected , Range (NotDetected), Barbiturates Screen Not Detected , Range (NotDetected), Oxycodone Screen Not Detected , Range (NotDetected), Propoxyphene Screen Not Detected , Range (NotDetected), Drug Screen Cutoff , Range (), The Content Fleet Profile-V Panel for Qualitative Drugs of Abuse assays are for, presumptive screening testing only. The drug class and detection limits, are as follows: Drug Class Detection Limit Amphetamine , 500 ng/mL* Barbiturates 200 ng/mL , Benzodiazepines 150 ng/mL* Cocaine 150 ng/mL*, Methamphetamine 500 ng/mL* Methadone 200, ng/mL* Opiates 100 ng/mL* Oxycodone , 100 ng/mL PCP 25 ng/mL Propoxyphene , 300 ng/mL Tricyclic Antidepressants 300 ng/mL Cannabinoids (THC) , 50 ng/mL Tests which yield a presumptive positive result must be , tested using a more specific alternate chemical method in order to obtain, a confirmed analytical result. Additional confirmation and identification, may be ordered on a routine basis, if desired. Presumptive positive urines, are held for two weeks. . (16:25 OD) Comprehensive Metabolic Panel Collection DT: MonMay 06, 2016 15:52, Sodium 140 mmol/L, Range (136-145), Potassium 3.6 mmol/L, Range (3.5-5.1), Chloride 104 mmol/L, Range (98-107), Carbon Dioxide 24 mmol/L, Range (22-29), Anion Gap 16 mmol/L, Range (10-20), *BUN (Urea Nitrogen) 4 - L mg/dL, Range (7.0-18.7), Creatinine 0.74 mg/dL, Range (0.6-1.1), Estimated GFR-MDRD 86 , Reference Range for Estimated GFR: Greater than 90, mL/min/1.73 m2 &a-1R&a+25V*p+0X*u5933K*c202B*c15G*c2P*p-0X&a-25V&a+1R Name: Kenny Janet Mejia : 1975 F41 MedRec: [id number] AcctNum: [id number] Prepared: MonMay 06, 2016 19:32 by Interface Page 10 of 11 pMD [facility] EMERGENCY RECORD NOTE: The MDRD equation has not been validated for use, with the elderly (over 70 years of age), women, patients with, serious comorbid condition or persons with extremes of body size, muscle, mass, or nutritional status. , Glucose 86 mg/dL, Range (70-105), Calcium 9.6 mg/dL, Range (7.8-10.44), Bilirubin, Total 0.3 mg/dL, Range (0.2-1.2), Protein, Total 7.0 g/dL, Range (6.0-8.3), NOTE: Plasma values are generally 0.3 to 0.5 g/dL higher than serum values, due to the presence of fibrinogen. , Albumin 4.5 g/dL, Range (3.5-5.0), Globulin 2.5 g/dL, Range (2.4-3.5), Alb/Glob Ratio 1.8 g/dL, Range (1.2-2.2), Alkaline Phosphatase 104 U/L, Range (40-150), AST (SGOT) 14 U/L, Range (5-34), ALT (SGPT) 14 U/L, Range (0-55). (16:25 LHOD) Frost: LHOD=MD Paty, Kathleen SFRE=ALEJANDRA Horton, Martha &a-1R&a+25V*p+0X*[id number]*c202B*c15G*c2P*p-0X&a-25V&a+1R Name: Janet Cox : 1975 F41 MedRec: [id number] AcctNum: [id number] Prepared: MonMay 06, 2016 19:32 by Interface Page 11 of 11 pMD MTDD
--- NOTE | 2016-05-06 22:39 | CT ---
EXAM: ABDOMEN CT WITH CONTRAST PELVIC CT WITH CONTRAST 05/06/16 HISTORY: Abdominal cramps. Abdominal pain. Evaluate for appendicitis. COMPARISON: Technique abdomen and pelvic CT are performed with IV and oral contrast. Coronal reformatted images are submitted for interpretation. FINDINGS: ABDOMEN CT: The lung bases are clear. Heart size is normal. No pericardial effusion. Descending thoracic aorta a nd abdominal aorta have a caliber. No periaortic fat stranding. Symmetric attenuation of the psoas muscles. No gastrohepatic, retrocrural, or periportal lymphadenopathy. Intra and extrahepatic portal vein is patent. Liver, spleen, pancreas, and adrenal glands have appropriate enhancement. Contracted gallbladder likely due to nonfasting state. Symmetric enhancement of the kidneys. Bilaterally, no obstructive uropathy. Gastric mucosal, duodenum and small bowel loops are grossly unremarkable. Ileocecal junction is norm al. Normal caliber, contrast filled appendix. There is oral contrast throughout the entire colon. Mi nimal mucosal thickening in the left hemicolon likely due to incomplete/inadequate distention. There is no inflammation of the cecal apex. PELVIC CT: The uterus is surgically absent. No pelvic mass, lymphadenopathy, free air or free fluid. The urinar y bladder is unremarkable. No osteoblastic or osteolytic lesions. IMPRESSION: 1. Normal caliber appendix. No inflammatory changes in the cecal apex. 2. No acute abnormality within the abdomen or pelvis. POS: PPP
== END 2016-05-06 19:04 | disposition home or self-care (01) ==
LOC: MADERS 15:03
DX: K52.9 Noninfective gastroenteritis and colitis, unspecified (principal); F17.210 Nicotine dependence, cigarettes, uncomplicated
CPT/HCPCS: 36415; 74177; 80053; 80306; 81001; 85025; 96361; 96374; 96375; J1200; J1885; J2405; J2930; J7050